=== PATIENT | female | born 1930 | race Two or more races ===

== ENCOUNTER 2020-03-05 15:02 | Inpatient (IN) | payer OTHER ==
[~2020-03-05] VITALS: Ht 157.5 cm; Wt 86.2 kg
[2020-03-05] MEDS ORDERED: SYNTHROID50 MCG (15:30)
[2020-03-05] MEDS ORDERED: AVALIDE (15:30)
[2020-03-05] MEDS ORDERED: CYMBALTA60 MG (15:30)
[2020-03-05] MEDS ORDERED: ATIVAN0.5 M1 (15:31)
[2020-03-05] MEDS ORDERED: NEURONTIN300 MG (15:31)
[2020-03-05] MEDS ORDERED: ACETAMINOPHEN500 M1 (15:32)
[2020-03-05] MEDS ORDERED: PROTONIX40 M1 (15:32)
== END 2020-03-09 12:59 | disposition left against medical advice (07) | DRG 395 ==
LOC: ER 15:02 → MEDI 22:33
PROVIDERS: ADMIT Internal Medicine; ATTEND Internal Medicine
PROC: 4A033R1 Measurement of Arterial Saturation, Peripheral, Percutaneous Approach (ICD-10-PCS; principal; 2020-03-05)
PROC: 0DB98ZX Excision of Duodenum, Via Natural or Artificial Opening Endoscopic, Diagnostic (ICD-10-PCS; 2020-03-05)
PROC: 0DB78ZX Excision of Stomach, Pylorus, Via Natural or Artificial Opening Endoscopic, Diagnostic (ICD-10-PCS; 2020-03-05)
PROC: 30233R1 Transfusion of Nonautologous Platelets into Peripheral Vein, Percutaneous Approach (ICD-10-PCS; 2020-03-06)
PROC: 0DBK8ZX Excision of Ascending Colon, Via Natural or Artificial Opening Endoscopic, Diagnostic (ICD-10-PCS; 2020-03-08)
PROC: 0DBH8ZX Excision of Cecum, Via Natural or Artificial Opening Endoscopic, Diagnostic (ICD-10-PCS; 2020-03-08)
DX: D12.2 Benign neoplasm of ascending colon (principal); D64.9 Anemia, unspecified; I10 Essential (primary) hypertension; E03.9 Hypothyroidism, unspecified; K29.50 Unspecified chronic gastritis without bleeding; Z20.828 Contact with and (suspected) exposure to other viral communicable diseases